=== PATIENT | female | born 1975 | race Caucasian/White ===

== ENCOUNTER 2023-11-15 20:54 | Emergency (ER) | payer OTHER ==
[~2023-11-15] VITALS: Ht 165.1 cm; Wt 80.3 kg
[2023-11-15 21:30] VITALS: BP 131/90; PULSE 82; RESP 17; TEMP 97.8; O2SAT 98
[2023-11-15 23:00] VITALS: O2SAT 98
[2023-11-15] MEDS: KETOROLAC 60 MG/2 ML VIAL IM ONE (23:29)
[2023-11-16] MEDS ORDERED: IBUP-2213 PO (00:07)
[2023-11-16] MEDS ORDERED: PRED20TA5 PO (00:07)
== END 2023-11-16 00:16 | disposition home or self-care (01) ==
LOC: MED 20:54
DX: R10.9 Unspecified abdominal pain (principal); R05.9 Cough, unspecified; R03.0 Elevated blood-pressure reading, without diagnosis of hypertension; E11.9 Type 2 diabetes mellitus without complications
CPT/HCPCS: 81002; 81025; 82947; 96372; 99283; J1885